=== PATIENT | male | born 1965 | race Caucasian/White ===

== ENCOUNTER 2022-03-17 19:39 | Inpatient (IN) | payer OTHER ==
[2022-03-17 20:41] LABS: #Basophils 0.1 10x3/uL (0.0-0.2); #Eosinphils 0.2 10x3/uL (0.0-0.5); #Monocytes 0.6 10x3/uL (0.0-1.1); #Neutrophils 5.8 10x3/uL (1.5-8.4); %Basophils 1.4 % (0.0-2.0); %Eosinophils 2.2 % (0.0-6.0); %Lymphocytes 18.4 % (18.0-47.0); %Monocytes 6.8 % (0.0-10.0); %Neutrophils 70.7 % (40.0-75.0); Hemoglobin 10.6 g/dL (13.5-17.5); Mean Corpuscular HGB CONC 28.1 g/dL (32.0-36.0); Mean Corpuscular Hemoglobin 19.8 pg (27.0-33.0); Mean Corpuscular Volume 70.3 fl (81.2-95.1); Mean Platelet Volume 9.8 fl (7.4-10.4); Platelet Count 303 10x3/uL (150-450); RBC Distribution Width 24.3 % (11.5-14.5); Red Blood Cell (RBC) Count 5.36 10x6/uL (4.32-5.72); White Blood Cell (WBC) Count 8.1 10x3/uL (3.5-10.5)
[2022-03-17 20:42] LABS: ALT (SGPT) 8 U/L (8-55); AST (SGOT) 16 U/L (5-34); Albumin 3.9 g/dL (3.5-5.0); Alkaline Phosphatase 84 U/L (40-110); Anion Gap 15 mmol/L (10-20); BUN (Urea Nitrogen) 16 mg/dL (8.4-25.7); Bilirubin, Total 1.5 mg/dL (0.2-1.2); Calc. Creatinine Clearance 0 mL/min (70-130); Calcium 9.2 mg/dL (7.8-10.44); Carbon Dioxide 29 mmol/L (22-29); Chloride 100 mmol/L (98-107); Globulin 2.6 g/dL (2.4-3.5); Glucose 159 mg/dL (70-105); Potassium 3.6 mmol/L (3.5-5.1); Protein, Total 6.5 g/dL (6.0-8.3); Sodium 140 mmol/L (136-145)
[2022-03-17 21:15] LABS: Platelet Morphology Comment Appears Adequate
[2022-03-17 21:17] LABS: Anisocytosis SLIGHT = 6-15 cells (100X) (0-5/hpf); Hypochromia SLIGHT = 6-15 cells (100X) (0-5/hpf); Macrocytosis SLIGHT = 6-15 cells (100X) (0-5/hpf); Microcytosis SLIGHT = 6-15 cells (100X) (0-5/hpf); Polychromasia SLIGHT = 2-3 cells (100X) (0-2/hpf)
[2022-03-17 21:18] LABS: Elliptocytes SLIGHT = 2-5 cells (100X) (0-1/hpf); Stomatocytes SLIGHT = 2-5 cells (100X) (0-1/hpf)
[2022-03-17 21:46] LABS: SARS-CoV-2 NAA Rapid Test Not Detected (NotDetected)
[2022-03-17] MEDS ORDERED: Furosemide 40 MG/4 ML VIAL ONE (21:51)
[2022-03-17] MEDS ORDERED: cefTRIAXone\\ROCEPHIN 2 GM VIAL ONE (21:52)
[2022-03-17] MEDS ORDERED: diphenhydrAMINE 50 MG/ML VIAL ONE (22:34)
[2022-03-17] MEDS ORDERED: Ondansetron PF 4 MG/2 ML Vial ONE (22:34)
[2022-03-17 23:36] LABS: Troponin I 0.015 ng/mL (< 0.028)
[2022-03-17] MEDS ORDERED: Famotidine/PF 20 mg/2ml Vial ONE (23:42)
[2022-03-18 01:00] LABS: Magnesium 1.7 mg/dL (1.6-2.6)
[2022-03-18] MEDS: Nitroglycerin 2% Ointment 1 INCH/1 GM Packet TOP SCH ×3 (01:53→16:34)
[2022-03-18] MEDS ORDERED: Diltiazem 125 MG in Sodium Chloride 0.9% 100 ML IVPB SCH (02:00)
[2022-03-18 02:43] LABS: #Basophils 0.1 10x3/uL (0.0-0.2); #Eosinphils 0.2 10x3/uL (0.0-0.5); #Monocytes 0.7 10x3/uL (0.0-1.1); %Basophils 1.2 % (0.0-2.0); %Eosinophils 2.3 % (0.0-6.0); %Lymphocytes 19.3 % (18.0-47.0); %Monocytes 7.5 % (0.0-10.0); %Neutrophils 69.4 % (40.0-75.0); Hemoglobin 10.6 g/dL (13.5-17.5); Mean Corpuscular HGB CONC 27.7 g/dL (32.0-36.0); Mean Corpuscular Hemoglobin 19.7 pg (27.0-33.0); Mean Corpuscular Volume 71.1 fl (81.2-95.1); Platelet Count 312 10x3/uL (150-450); RBC Distribution Width 24.2 % (11.5-14.5); Red Blood Cell (RBC) Count 5.37 10x6/uL (4.32-5.72); White Blood Cell (WBC) Count 8.7 10x3/uL (3.5-10.5)
[2022-03-18 02:51] LABS: Troponin I 0.012 ng/mL (< 0.028)
[2022-03-18 03:15] LABS: Platelet Morphology Comment Appears Adequate
[2022-03-18 03:16] LABS: Anisocytosis SLIGHT = 6-15 cells (100X) (0-5/hpf); Hypochromia SLIGHT = 6-15 cells (100X) (0-5/hpf); Large Platelets SLIGHT; Macrocytosis SLIGHT = 6-15 cells (100X) (0-5/hpf); Microcytosis SLIGHT = 6-15 cells (100X) (0-5/hpf); Polychromasia SLIGHT = 2-3 cells (100X) (0-2/hpf)
[2022-03-18] MEDS: Furosemide 40 MG/4 ML VIAL SLOW IVP SCH ×2 (06:50→16:34)
[2022-03-18] MEDS ORDERED: Lisinopril 2.5 MG TAB PO SCH (09:00)
[2022-03-18] MEDS: Metoprolol Tartrate 50 MG TAB PO SCH ×2 (09:09→22:13)
[2022-03-18] MEDS: Lisinopril 20 MG TAB PO SCH (09:10)
[2022-03-18] MEDS: Aspirin 81 mg Enteric Coated Tablet PO SCH (09:10)
[2022-03-18] MEDS: metFORMIN 500 MG TAB PO SCH ×2 (09:10→16:34)
[2022-03-18] MEDS: Apixaban 5 MG TAB PO SCH ×2 (09:10→22:13)
[2022-03-18] MEDS: HumuLIN 70/30 (300 UNITS/3 ML VIAL) SC SCH ×3 (09:10→22:13)
[2022-03-18] MEDS ORDERED: Bumetanide 1 MG TAB PO SCH (16:52)
[2022-03-18] MEDS ORDERED: Dextrose 50% Abboject 50 ML SYRINGE SLOW IVP PRN (16:58)
[2022-03-18] MEDS ORDERED: HumaLOG 300 UNITS/3 ML VIAL SC PRN (16:58)
[2022-03-18] MEDS ORDERED: Dextrose 5% in Water 1,000 ML IV PRN (16:58)
[2022-03-18] MEDS ORDERED: Bumetanide 1 MG/4 ML VIAL IVP SCH ×2 (18:00→21:00)
[2022-03-18] MEDS: HumaLOG 300 UNITS/3 ML VIAL SC PRN (18:22)
[2022-03-18] MEDS ORDERED: Ondansetron PF 4 MG/2 ML Vial IVP PRN (21:04)
[2022-03-18] MEDS ORDERED: cefTRIAXone\\ROCEPHIN 2 GM in Sodium Chloride 0.9% 100 ML IVPB SCH (22:00)
[2022-03-18] MEDS: Simvastatin 10 MG TAB PO SCH (22:13)
[2022-03-19] MEDS: Nitroglycerin 2% Ointment 1 INCH/1 GM Packet TOP SCH ×3 (01:29→18:27)
[2022-03-19] MEDS: HumaLOG 300 UNITS/3 ML VIAL SC PRN ×2 (05:51→12:57)
[2022-03-19] MEDS: Bumetanide 1 MG/4 ML VIAL IVP SCH ×4 (05:53→21:17)
[2022-03-19 07:40] LABS: #Basophils 0.1 10x3/uL (0.0-0.2); #Eosinphils 0.2 10x3/uL (0.0-0.5); #Monocytes 0.7 10x3/uL (0.0-1.1); #Neutrophils 6.2 10x3/uL (1.5-8.4); %Basophils 1.3 % (0.0-2.0); %Eosinophils 2.3 % (0.0-6.0); %Lymphocytes 16.7 % (18.0-47.0); %Monocytes 7.5 % (0.0-10.0); %Neutrophils 71.9 % (40.0-75.0); Hemoglobin 11.3 g/dL (13.5-17.5); Mean Corpuscular Volume 71.6 fl (81.2-95.1); Mean Platelet Volume 9.6 fl (7.4-10.4); Platelet Count 289 10x3/uL (150-450); RBC Distribution Width 23.9 % (11.5-14.5); Red Blood Cell (RBC) Count 5.64 10x6/uL (4.32-5.72); White Blood Cell (WBC) Count 8.6 10x3/uL (3.5-10.5)
[2022-03-19 08:16] LABS: Anion Gap 13 mmol/L (10-20); BUN (Urea Nitrogen) 20 mg/dL (8.4-25.7); Calc. Creatinine Clearance 224 mL/min (70-130); Calcium 9.3 mg/dL (7.8-10.44); Carbon Dioxide 30 mmol/L (22-29); Chloride 99 mmol/L (98-107); Glucose 226 mg/dL (70-105); Magnesium 1.5 mg/dL (1.6-2.6); Potassium 3.9 mmol/L (3.5-5.1); Sodium 138 mmol/L (136-145)
[2022-03-19] MEDS: Metoprolol Tartrate 50 MG TAB PO SCH ×2 (09:54→21:16)
[2022-03-19] MEDS: HumuLIN 70/30 (300 UNITS/3 ML VIAL) SC SCH ×2 (09:55→23:03)
[2022-03-19] MEDS: Aspirin 81 mg Enteric Coated Tablet PO SCH (09:55)
[2022-03-19] MEDS: metFORMIN 500 MG TAB PO SCH ×2 (09:55→18:26)
[2022-03-19] MEDS: Apixaban 5 MG TAB PO SCH ×2 (09:55→21:16)
[2022-03-19] MEDS: Lisinopril 20 MG TAB PO SCH (09:55)
[2022-03-19] MEDS ORDERED: Magnesium 2 GM/50 ML(in water) 2 GM in Premix Bag 1 BAG IVPB SCH (15:00)
[2022-03-19] MEDS: Simvastatin 10 MG TAB PO SCH (21:16)
[2022-03-20] MEDS: Nitroglycerin 2% Ointment 1 INCH/1 GM Packet TOP SCH ×3 (00:22→17:18)
[2022-03-20 04:39] LABS: Anion Gap 17 mmol/L (10-20); BUN (Urea Nitrogen) 19 mg/dL (8.4-25.7); Calc. Creatinine Clearance 262 mL/min (70-130); Calcium 9.2 mg/dL (7.8-10.44); Carbon Dioxide 28 mmol/L (22-29); Chloride 100 mmol/L (98-107); Glucose 110 mg/dL (70-105); Sodium 141 mmol/L (136-145)
[2022-03-20] MEDS: metFORMIN 500 MG TAB PO SCH ×2 (08:44→17:18)
[2022-03-20] MEDS: Lisinopril 20 MG TAB PO SCH (08:44)
[2022-03-20] MEDS: Metoprolol Tartrate 50 MG TAB PO SCH ×2 (08:45→21:00)
[2022-03-20] MEDS: Aspirin 81 mg Enteric Coated Tablet PO SCH (08:45)
[2022-03-20] MEDS: Apixaban 5 MG TAB PO SCH ×2 (08:45→21:02)
[2022-03-20] MEDS: HumuLIN 70/30 (300 UNITS/3 ML VIAL) SC SCH ×2 (08:46→21:01)
[2022-03-20] MEDS: Bumetanide 1 MG/4 ML VIAL IVP SCH ×3 (10:16→21:01)
[2022-03-20] MEDS: Simvastatin 10 MG TAB PO SCH (21:01)
[2022-03-21] MEDS: Nitroglycerin 2% Ointment 1 INCH/1 GM Packet TOP SCH ×3 (01:35→15:54)
[2022-03-21 03:40] LABS: #Basophils 0.1 10x3/uL (0.0-0.2); #Eosinphils 0.2 10x3/uL (0.0-0.5); #Monocytes 0.6 10x3/uL (0.0-1.1); #Neutrophils 5.3 10x3/uL (1.5-8.4); %Basophils 1.4 % (0.0-2.0); %Eosinophils 2.9 % (0.0-6.0); %Lymphocytes 18.2 % (18.0-47.0); %Neutrophils 69.2 % (40.0-75.0); Hemoglobin 11.4 g/dL (13.5-17.5); Mean Corpuscular HGB CONC 27.7 g/dL (32.0-36.0); Mean Corpuscular Hemoglobin 19.9 pg (27.0-33.0); Mean Corpuscular Volume 71.9 fl (81.2-95.1); Mean Platelet Volume 9.2 fl (7.4-10.4); Platelet Count 254 10x3/uL (150-450); RBC Distribution Width 23.9 % (11.5-14.5); Red Blood Cell (RBC) Count 5.73 10x6/uL (4.32-5.72); White Blood Cell (WBC) Count 7.6 10x3/uL (3.5-10.5)
[2022-03-21 03:55] LABS: Anion Gap 17 mmol/L (10-20); BUN (Urea Nitrogen) 19 mg/dL (8.4-25.7); Calc. Creatinine Clearance 241 mL/min (70-130); Calcium 8.8 mg/dL (7.8-10.44); Carbon Dioxide 30 mmol/L (22-29); Chloride 98 mmol/L (98-107); Glucose 137 mg/dL (70-105); Magnesium 1.8 mg/dL (1.6-2.6); Potassium 3.8 mmol/L (3.5-5.1); Sodium 141 mmol/L (136-145)
[2022-03-21 04:33] LABS: Bilirubin Neg (Negative); Blood, Urine 25 (Negative); Clarity Clear (Clear); Glucose, Urine (Dipstick) Normal (Negative); Ketone, Urine Negative (Negative); Leukocyte Negative (Negative); Nitrite Negative (Negative); Protein, Urine (Dipstick) 15 mg/dl (Neg-Trace)
[2022-03-21 04:48] LABS: Bacteria/HPF None Seen HPF (None Seen); RBC/HPF 0-3 HPF (0-3); Squamous Epithelial None Seen HPF (0-3); Urine Culture Reflex No No; WBC/HPF None Seen HPF (0-3)
[2022-03-21] MEDS: Bumetanide 1 MG/4 ML VIAL IVP SCH ×3 (08:26→21:06)
[2022-03-21] MEDS: HumuLIN 70/30 (300 UNITS/3 ML VIAL) SC SCH ×2 (08:27→21:00)
[2022-03-21] MEDS: Aspirin 81 mg Enteric Coated Tablet PO SCH (08:45)
[2022-03-21] MEDS: Metoprolol Tartrate 50 MG TAB PO SCH ×2 (08:46→21:07)
[2022-03-21] MEDS: Apixaban 5 MG TAB PO SCH ×2 (08:46→21:07)
[2022-03-21] MEDS: Lisinopril 20 MG TAB PO SCH (08:46)
[2022-03-21] MEDS: metFORMIN 500 MG TAB PO SCH ×2 (08:46→16:28)
[2022-03-21 14:19] VITALS: BMI 65.2
[2022-03-21] MEDS: Simvastatin 10 MG TAB PO SCH (21:07)
[2022-03-22] MEDS: Nitroglycerin 2% Ointment 1 INCH/1 GM Packet TOP SCH ×3 (01:00→16:20)
[2022-03-22 04:49] LABS: Anion Gap 16 mmol/L (10-20); BUN (Urea Nitrogen) 16 mg/dL (8.4-25.7); Calc. Creatinine Clearance 296 mL/min (70-130); Calcium 8.7 mg/dL (7.8-10.44); Carbon Dioxide 31 mmol/L (22-29); Chloride 97 mmol/L (98-107); Glucose 199 mg/dL (70-105); Magnesium 1.6 mg/dL (1.6-2.6); Potassium 3.7 mmol/L (3.5-5.1); Sodium 140 mmol/L (136-145)
[2022-03-22] MEDS: HumaLOG 300 UNITS/3 ML VIAL SC PRN (05:01)
[2022-03-22] MEDS: Lisinopril 20 MG TAB PO SCH (08:25)
[2022-03-22] MEDS: Metoprolol Tartrate 50 MG TAB PO SCH ×2 (08:25→20:38)
[2022-03-22] MEDS: metFORMIN 500 MG TAB PO SCH ×2 (08:25→16:19)
[2022-03-22] MEDS: Apixaban 5 MG TAB PO SCH ×2 (08:25→20:37)
[2022-03-22] MEDS: Bumetanide 1 MG/4 ML VIAL IVP SCH ×3 (08:25→20:55)
[2022-03-22] MEDS: HumuLIN 70/30 (300 UNITS/3 ML VIAL) SC SCH ×2 (08:25→20:50)
[2022-03-22] MEDS: Aspirin 81 mg Enteric Coated Tablet PO SCH (08:25)
[2022-03-22] MEDS: Simvastatin 10 MG TAB PO SCH (20:48)
[2022-03-23] MEDS: Nitroglycerin 2% Ointment 1 INCH/1 GM Packet TOP SCH ×2 (01:22→09:50)
[2022-03-23 04:58] LABS: Anion Gap 14 mmol/L (10-20); BUN (Urea Nitrogen) 16 mg/dL (8.4-25.7); Calc. Creatinine Clearance 303 mL/min (70-130); Calcium 8.8 mg/dL (7.8-10.44); Carbon Dioxide 32 mmol/L (22-29); Chloride 98 mmol/L (98-107); Glucose 120 mg/dL (70-105); Magnesium 1.6 mg/dL (1.6-2.6); Potassium 3.7 mmol/L (3.5-5.1); Sodium 140 mmol/L (136-145)
[2022-03-23] MEDS: Bumetanide 1 MG/4 ML VIAL IVP SCH ×3 (09:07→20:26)
[2022-03-23] MEDS: metFORMIN 500 MG TAB PO SCH ×2 (09:07→15:57)
[2022-03-23] MEDS: Aspirin 81 mg Enteric Coated Tablet PO SCH (09:08)
[2022-03-23] MEDS: Apixaban 5 MG TAB PO SCH ×2 (09:08→20:26)
[2022-03-23] MEDS: Lisinopril 20 MG TAB PO SCH (09:09)
[2022-03-23] MEDS: Metoprolol Tartrate 50 MG TAB PO SCH ×2 (09:09→20:26)
[2022-03-23] MEDS: HumuLIN 70/30 (300 UNITS/3 ML VIAL) SC SCH ×2 (09:09→22:30)
[2022-03-23] MEDS: HumaLOG 300 UNITS/3 ML VIAL SC PRN (12:35)
[2022-03-23] MEDS: Fluticasone Propionate Nasal Spray 16 gm Bottle NASAL SCH (20:25)
[2022-03-23] MEDS: Simvastatin 10 MG TAB PO SCH (20:26)
[2022-03-24] MEDS ORDERED: Ondansetron PF 4 MG/2 ML Vial IVP SCH (04:45)
[2022-03-24] MEDS: Apixaban 5 MG TAB PO SCH ×2 (08:58→19:54)
[2022-03-24] MEDS: Bumetanide 1 MG/4 ML VIAL IVP SCH ×3 (08:58→21:00)
[2022-03-24] MEDS: metFORMIN 500 MG TAB PO SCH ×2 (08:58→15:57)
[2022-03-24] MEDS: Fluticasone Propionate Nasal Spray 16 gm Bottle NASAL SCH ×2 (08:59→19:55)
[2022-03-24] MEDS: Metoprolol Tartrate 50 MG TAB PO SCH ×2 (08:59→19:54)
[2022-03-24] MEDS: Lisinopril 20 MG TAB PO SCH (08:59)
[2022-03-24] MEDS: HumuLIN 70/30 (300 UNITS/3 ML VIAL) SC SCH ×2 (08:59→21:37)
[2022-03-24] MEDS: Aspirin 81 mg Enteric Coated Tablet PO SCH (08:59)
[2022-03-24] MEDS: Simvastatin 10 MG TAB PO SCH (19:54)
[2022-03-24 22:29] VITALS: BP 144/68; TEMP 97.9
== END 2022-03-24 22:30 | disposition home or self-care (01) | DRG 291 ==
LOC: CSHERS 19:39 → CSHTELE 22:05 → UNDOADMIN 03-18 00:44 → CSHTELE 03-18 00:44
PROVIDERS: ADMIT Family Medicine; ATTEND Internal Medicine
PROC: 5A09457 Assistance with Respiratory Ventilation, 24-96 Consecutive Hours, Continuous Positive Airway Pressure (ICD-10-PCS; principal; 2022-03-18)
DX: I11.0 Hypertensive heart disease with heart failure (principal); I50.33 Acute on chronic diastolic (congestive) heart failure; J96.90 Respiratory failure, unspecified, unspecified whether with hypoxia or hypercapnia; L03.311 Cellulitis of abdominal wall; I48.20 Chronic atrial fibrillation, unspecified; Z68.44 Body mass index [BMI] 60.0-69.9, adult; E66.2 Morbid (severe) obesity with alveolar hypoventilation; Z20.822 Contact with and (suspected) exposure to COVID-19; E78.5 Hyperlipidemia, unspecified; D64.9 Anemia, unspecified; E11.51 Type 2 diabetes mellitus with diabetic peripheral angiopathy without gangrene; F17.290 Nicotine dependence, other tobacco product, uncomplicated; E83.42 Hypomagnesemia; Z79.4 Long term (current) use of insulin; Z79.84 Long term (current) use of oral hypoglycemic drugs; Z79.899 Other long term (current) drug therapy; Z79.82 Long term (current) use of aspirin; Z89.511 Acquired absence of right leg below knee; Z80.0 Family history of malignant neoplasm of digestive organs; Z83.3 Family history of diabetes mellitus; Z79.01 Long term (current) use of anticoagulants; Z88.1 Allergy status to other antibiotic agents
CPT/HCPCS: 36415; 36416; 71045; 80048; 80053; 81001; 83605; 83735; 83880; 84484; 85025; 86140; 87040; 87086; 87149; 93005; 93010; 94660; 94760; 96365; 96375; J0696; J1200; J1815; J1940; J2405; J3475; J3490; S0028; U0002

== ENCOUNTER 2022-03-27 09:17 | Outpatient (CLI) | payer MEDICAID, OTHER | END 2022-03-27 09:18 | disposition home or self-care (01) | LOC: CSHWCC 09:17 | PROVIDERS: ATTEND Nurse Practitioner Family | DX: E11.621 Type 2 diabetes mellitus with foot ulcer (principal); L97.522 Non-pressure chronic ulcer of other part of left foot with fat layer exposed ==

== ENCOUNTER → 2022-03-27 | Outpatient (CLI) | payer OTHER | LOC: CSHWCC 21:31 | PROVIDERS: ATTEND Nurse Practitioner Family | DX: E11.621 Type 2 diabetes mellitus with foot ulcer (principal); L97.522 Non-pressure chronic ulcer of other part of left foot with fat layer exposed | CPT/HCPCS: 99213; G0463 ==

== ENCOUNTER 2022-04-25 21:52 | Emergency (ER) | payer OTHER ==
[2022-04-25 23:12] LABS: Bilirubin Neg (Negative); Blood, Urine 25 (Negative); Clarity Clear (Clear); Glucose, Urine (Dipstick) >=1000 mg/dL (Negative); Ketone, Urine Negative (Negative); Leukocyte Negative (Negative); Nitrite Negative (Negative); Protein, Urine (Dipstick) 15 mg/dl (Neg-Trace); Specific Gravity, Urine 1.005 (1.002-1.036); Urobilinogen Normal mg/dL (Less than 2)
[2022-04-25 23:27] LABS: Bacteria/HPF None Seen HPF (None Seen); RBC/HPF 0-3 HPF (0-3); Squamous Epithelial 0-3 HPF (0-3); WBC/HPF 0-3 HPF (0-3)
[2022-04-25 23:35] LABS: #Basophils 0.1 10x3/uL (0.0-0.2); #Eosinphils 0.2 10x3/uL (0.0-0.5); #Monocytes 0.5 10x3/uL (0.0-1.1); #Neutrophils 6.9 10x3/uL (1.5-8.4); %Basophils 0.8 % (0.0-2.0); %Eosinophils 2.1 % (0.0-6.0); %Lymphocytes 15.4 % (18.0-47.0); %Monocytes 5.2 % (0.0-10.0); %Neutrophils 75.8 % (40.0-75.0); Hemoglobin 10.8 g/dL (13.5-17.5); Mean Corpuscular Hemoglobin 22.2 pg (27.0-33.0); Mean Corpuscular Volume 74.1 fl (81.2-95.1); Mean Platelet Volume 10.5 fl (7.4-10.4); Platelet Count 197 10x3/uL (150-450); RBC Distribution Width 22.3 % (11.5-14.5); Red Blood Cell (RBC) Count 4.86 10x6/uL (4.32-5.72); White Blood Cell (WBC) Count 9.1 10x3/uL (3.5-10.5)
[2022-04-25 23:37] LABS: ALT (SGPT) 10 U/L (8-55); AST (SGOT) 14 U/L (5-34); Albumin 3.3 g/dL (3.5-5.0); Alkaline Phosphatase 82 U/L (40-110); Anion Gap 14 mmol/L (10-20); BUN (Urea Nitrogen) 28 mg/dL (8.4-25.7); Bilirubin, Total 1.1 mg/dL (0.2-1.2); CK (CPK) 91 U/L (30-200); Calc. Creatinine Clearance 0 mL/min (70-130); Calcium 7.4 mg/dL (7.8-10.44); Carbon Dioxide 22 mmol/L (22-29); Chloride 103 mmol/L (98-107); Globulin 2.3 g/dL (2.4-3.5); Glucose 530 mg/dL (70-105); Potassium 3.9 mmol/L (3.5-5.1); Protein, Total 5.6 g/dL (6.0-8.3); Sodium 135 mmol/L (136-145)
[2022-04-26 00:10] LABS: Anisocytosis SLIGHT = 6-15 cells (100X) (0-5/hpf); Elliptocytes SLIGHT = 2-5 cells (100X) (0-1/hpf); Platelet Morphology Comment Appears Adequate
[2022-04-26] MEDS ORDERED: Metoprolol Tartrate 50 MG TAB ONE (00:16)
[2022-04-26] MEDS ORDERED: Potassium Chloride 20 MEQ TAB ONE (00:16)
[2022-04-26] MEDS ORDERED: Metoprolol Tartrate 5 MG/5 ML VIAL ONE ×2 (00:17→01:08)
[2022-04-26] MEDS ORDERED: Insulin Regular 300 UNITS/3 ML VIAL ONE (00:21)
== END 2022-04-26 02:03 | disposition home or self-care (01) ==
LOC: CSHERS 21:52
DX: E11.65 Type 2 diabetes mellitus with hyperglycemia (principal); I48.91 Unspecified atrial fibrillation; I11.0 Hypertensive heart disease with heart failure; I50.9 Heart failure, unspecified; Z79.899 Other long term (current) drug therapy; Z79.4 Long term (current) use of insulin; Z79.82 Long term (current) use of aspirin; Z79.01 Long term (current) use of anticoagulants; Z79.84 Long term (current) use of oral hypoglycemic drugs
CPT/HCPCS: 36416; 71045; 80053; 81003; 81015; 82010; 82550; 83880; 84484; 85025; 93005; 96374; 96375; 96376; J1815

== ENCOUNTER 2022-04-30 09:15 | Outpatient (CLI) | payer OTHER | END 2022-04-30 09:16 | disposition home or self-care (01) | LOC: CSHWCC 09:15 | PROVIDERS: ATTEND Nurse Practitioner Family | DX: S81.802D Unspecified open wound, left lower leg, subsequent encounter (principal); R60.1 Generalized edema; S81.801D Unspecified open wound, right lower leg, subsequent encounter | CPT/HCPCS: 36416; 99213; G0463 ==

== ENCOUNTER 2022-06-16 09:17 | Outpatient (CLI) | payer OTHER | END 2022-06-16 09:18 | disposition home or self-care (01) | LOC: CSHLAB 09:17 | PROVIDERS: ATTEND Internal Medicine Gastroenterology | DX: Z20.822 Contact with and (suspected) exposure to COVID-19 (principal); D64.9 Anemia, unspecified | CPT/HCPCS: 87811 ==

== ENCOUNTER 2022-07-17 10:30 | Inpatient (IN) | payer OTHER ==
[2022-07-17] MEDS ORDERED: Lidocaine 1% PF 5 ML VIAL ONE (11:10)
[2022-07-17] MEDS ORDERED: PROPOFOL 20 ML ONE (11:10)
[2022-07-17] MEDS ORDERED: Esmolol 100 MG/10 ML VIAL ONE (12:03)
[2022-07-17] MEDS ORDERED: Metoprolol Tartrate 5 MG/5 ML VIAL ONE (12:22)
[2022-07-17] MEDS ORDERED: PROPOFOL 40 ML ONE (12:29)
[2022-07-17] MEDS ORDERED: Guaifenesin DM 100-10/5 ML UDCUP PO PRN (14:29)
[2022-07-17] MEDS ORDERED: Ondansetron PF 4 MG/2 ML Vial IVP PRN (14:29)
[2022-07-17] MEDS ORDERED: Acetaminophen 325 MG TAB PO PRN (14:29)
[2022-07-17] MEDS ORDERED: Senokot S 8.6-50 MG TAB PO PRN (14:29)
[2022-07-17] MEDS ORDERED: Sodium Chloride 0.9% 1,000 ML IV SCH (14:45)
[2022-07-17] MEDS ORDERED: Diltiazem 125 MG in Sodium Chloride 0.9% 100 ML IVPB SCH (14:45)
[2022-07-17 14:56] VITALS: BMI 53.5
[2022-07-17 16:38] LABS: Bilirubin Neg (Negative); Blood, Urine 10 (Negative); Clarity Clear (Clear); Glucose, Urine (Dipstick) Normal (Negative); Ketone, Urine Negative (Negative); Leukocyte 25 (Negative); Nitrite Negative (Negative); Protein, Urine (Dipstick) 100 mg/dl (Neg-Trace)
[2022-07-17 16:39] LABS: ALT (SGPT) 27 U/L (8-55); AST (SGOT) 26 U/L (5-34); Albumin 3.6 g/dL (3.5-5.0); Alkaline Phosphatase 92 U/L (40-110); Anion Gap 15 mmol/L (10-20); BUN (Urea Nitrogen) 20 mg/dL (8.4-25.7); Bilirubin, Total 1.1 mg/dL (0.2-1.2); Calc. Creatinine Clearance 225 mL/min (70-130); Calcium 8.8 mg/dL (7.8-10.44); Carbon Dioxide 21 mmol/L (22-29); Chloride 104 mmol/L (98-107); Estimated GFR 100; Globulin 2.9 g/dL (2.4-3.5); Glucose 237 mg/dL (70-105); Potassium 4.8 mmol/L (3.5-5.1); Protein, Total 6.5 g/dL (6.0-8.3); Sodium 135 mmol/L (136-145)
[2022-07-17 16:42] LABS: #Basophils 0.1 10x3/uL (0.0-0.2); #Eosinphils 0.1 10x3/uL (0.0-0.5); #Monocytes 0.8 10x3/uL (0.0-1.1); #Neutrophils 12.2 10x3/uL (1.5-8.4); %Basophils 0.5 % (0.0-2.0); %Eosinophils 0.5 % (0.0-6.0); %Lymphocytes 12.2 % (18.0-47.0); %Monocytes 5.2 % (0.0-10.0); %Neutrophils 80.7 % (40.0-75.0); Hemoglobin 14.3 g/dL (13.5-17.5); Mean Corpuscular HGB CONC 30.4 g/dL (32.0-36.0); Mean Corpuscular Hemoglobin 23.5 pg (27.0-33.0); Mean Corpuscular Volume 77.3 fl (81.2-95.1); Mean Platelet Volume 10.5 fl (7.4-10.4); Platelet Count 250 10x3/uL (150-450); RBC Distribution Width 18.4 % (11.5-14.5); Red Blood Cell (RBC) Count 6.09 10x6/uL (4.32-5.72); White Blood Cell (WBC) Count 15.1 10x3/uL (3.5-10.5)
[2022-07-17 16:45] LABS: Urine Culture Reflex No No
[2022-07-17 16:49] LABS: Bacteria/HPF None Seen HPF (None Seen); RBC/HPF 0-3 HPF (0-3); Squamous Epithelial 0-3 HPF (0-3); WBC/HPF 0-3 HPF (0-3)
[2022-07-17 16:57] LABS: Legionella Urinary Ag Negative (Negative); Strep pneumo Urine Ag NEGATIVE (NEGATIVE)
[2022-07-17] MEDS: Apixaban 5 MG TAB PO SCH ×2 (18:01→19:15)
[2022-07-17] MEDS: Metoprolol Tartrate 50 MG TAB PO SCH (20:16)
[2022-07-17] MEDS: Famotidine 20 MG TAB PO SCH (20:16)
[2022-07-17] MEDS: Simvastatin 10 MG TAB PO SCH (20:16)
[2022-07-17] MEDS: HumuLIN 70/30 (300 UNITS/3 ML VIAL) SC SCH (20:24)
[2022-07-17] MEDS ORDERED: Lantus 1000 UNITS/10 ML VIAL SC SCH (21:00)
[2022-07-18 05:03] LABS: Anion Gap 10 mmol/L (10-20); BUN (Urea Nitrogen) 17 mg/dL (8.4-25.7); Calc. Creatinine Clearance 251 mL/min (70-130); Calcium 8.8 mg/dL (7.8-10.44); Carbon Dioxide 27 mmol/L (22-29); Chloride 105 mmol/L (98-107); Estimated GFR 103; Glucose 150 mg/dL (70-105); Potassium 4.5 mmol/L (3.5-5.1); Sodium 137 mmol/L (136-145)
[2022-07-18 05:08] LABS: #Basophils 0.1 10x3/uL (0.0-0.2); #Eosinphils 0.2 10x3/uL (0.0-0.5); #Monocytes 0.7 10x3/uL (0.0-1.1); #Neutrophils 8.1 10x3/uL (1.5-8.4); %Basophils 0.6 % (0.0-2.0); %Eosinophils 1.4 % (0.0-6.0); %Lymphocytes 17.8 % (18.0-47.0); %Monocytes 6.7 % (0.0-10.0); %Neutrophils 72.9 % (40.0-75.0); Hemoglobin 13.3 g/dL (13.5-17.5); Mean Corpuscular HGB CONC 30.9 g/dL (32.0-36.0); Mean Corpuscular Hemoglobin 23.5 pg (27.0-33.0); Mean Corpuscular Volume 76.3 fl (81.2-95.1); Platelet Count 229 10x3/uL (150-450); RBC Distribution Width 18.6 % (11.5-14.5); Red Blood Cell (RBC) Count 5.65 10x6/uL (4.32-5.72); White Blood Cell (WBC) Count 11.1 10x3/uL (3.5-10.5)
[2022-07-18] MEDS: Ferrous Sulfate 325 MG TAB PO SCH (08:50)
[2022-07-18] MEDS: Famotidine 20 MG TAB PO SCH ×2 (08:50→20:22)
[2022-07-18] MEDS: HumuLIN 70/30 (300 UNITS/3 ML VIAL) SC SCH ×2 (08:51→20:24)
[2022-07-18] MEDS: Apixaban 5 MG TAB PO SCH ×2 (08:51→20:22)
[2022-07-18] MEDS: Metoprolol Tartrate 50 MG TAB PO SCH ×2 (08:51→20:23)
[2022-07-18] MEDS: metFORMIN 500 MG TAB PO SCH ×2 (08:51→16:29)
[2022-07-18] MEDS ORDERED: Enoxaparin Sodium 40 MG/0.4 ML SYRINGE SC SCH (09:00)
[2022-07-18] MEDS: Simvastatin 10 MG TAB PO SCH (20:22)
[2022-07-19 07:00] LABS: SARS-CoV-2 NAA Rapid Test Not Detected (NotDetected)
[2022-07-19] MEDS: Metoprolol Tartrate 50 MG TAB PO SCH ×2 (09:20→20:59)
[2022-07-19] MEDS: Ferrous Sulfate 325 MG TAB PO SCH (09:21)
[2022-07-19] MEDS: Famotidine 20 MG TAB PO SCH ×2 (09:21→20:59)
[2022-07-19] MEDS: metFORMIN 500 MG TAB PO SCH ×2 (09:21→17:41)
[2022-07-19] MEDS: HumuLIN 70/30 (300 UNITS/3 ML VIAL) SC SCH ×2 (09:22→20:58)
[2022-07-19] MEDS: Apixaban 5 MG TAB PO SCH ×2 (09:22→21:00)
[2022-07-19] MEDS ORDERED: Propafenone HCl 150 MG TAB PO SCH ×2 (10:45→14:00)
[2022-07-19] MEDS ORDERED: Dextrose 50% Abboject 50 ML SYRINGE SLOW IVP PRN (13:05)
[2022-07-19] MEDS ORDERED: Dextrose 5% in Water 1,000 ML IV PRN (13:05)
[2022-07-19] MEDS: HumaLOG 300 UNITS/3 ML VIAL SC PRN (13:13)
[2022-07-19] MEDS: Simvastatin 10 MG TAB PO SCH (21:00)
[2022-07-19] MEDS: Propafenone HCl 150 MG TAB PO SCH (21:00)
[2022-07-20] MEDS: metFORMIN 500 MG TAB PO SCH ×2 (09:49→18:13)
[2022-07-20] MEDS: Propafenone HCl 150 MG TAB PO SCH ×3 (09:49→21:13)
[2022-07-20] MEDS: Famotidine 20 MG TAB PO SCH (09:50)
[2022-07-20] MEDS: Ferrous Sulfate 325 MG TAB PO SCH (09:50)
[2022-07-20] MEDS: Apixaban 5 MG TAB PO SCH ×2 (09:50→21:13)
[2022-07-20] MEDS: HumuLIN 70/30 (300 UNITS/3 ML VIAL) SC SCH ×2 (09:51→21:26)
[2022-07-20 09:52] LABS: Anion Gap 14 mmol/L (10-20); BUN (Urea Nitrogen) 15 mg/dL (8.4-25.7); Calc. Creatinine Clearance 231 mL/min (70-130); Calcium 9.4 mg/dL (7.8-10.44); Carbon Dioxide 25 mmol/L (22-29); Chloride 105 mmol/L (98-107); Estimated GFR 100; Glucose 152 mg/dL (70-105); Magnesium 1.7 mg/dL (1.6-2.6); Potassium 4.9 mmol/L (3.5-5.1); Sodium 139 mmol/L (136-145)
[2022-07-20] MEDS ORDERED: clonazePAM 0.5 MG TAB PO PRN (10:45)
[2022-07-20] MEDS ORDERED: Magnesium 2 GM/50 ML(in water) 2 GM in Premix Bag 1 BAG IVPB SCH (11:45)
[2022-07-20] MEDS ORDERED: clonazePAM 0.5 MG TAB PO SCH (12:30)
[2022-07-20] MEDS ORDERED: hydrALAZINE 20 MG/ML VIAL SLOW IVP PRN (12:47)
[2022-07-20] MEDS ORDERED: Carvedilol 25 MG TAB PO SCH (13:00)
[2022-07-20] MEDS: HumaLOG 300 UNITS/3 ML VIAL SC PRN ×2 (13:27→18:14)
[2022-07-20] MEDS: Bumetanide 1 MG TAB PO PRN (15:13)
[2022-07-20] MEDS: Carvedilol 25 MG TAB PO SCH (18:14)
[2022-07-20] MEDS ORDERED: Fluticasone Propionate Nasal Spray 16 gm Bottle NASAL PRN (19:09)
[2022-07-20] MEDS: Simvastatin 10 MG TAB PO SCH (21:13)
[2022-07-21] MEDS: Bumetanide 1 MG TAB PO PRN (05:22)
[2022-07-21] MEDS: HumaLOG 300 UNITS/3 ML VIAL SC PRN ×2 (05:22→12:38)
[2022-07-21 06:03] LABS: Anion Gap 14 mmol/L (10-20); BUN (Urea Nitrogen) 20 mg/dL (8.4-25.7); Calc. Creatinine Clearance 233 mL/min (70-130); Calcium 9.1 mg/dL (7.8-10.44); Carbon Dioxide 24 mmol/L (22-29); Chloride 103 mmol/L (98-107); Estimated GFR 101; Glucose 235 mg/dL (70-105); Magnesium 1.5 mg/dL (1.6-2.6); Potassium 4.1 mmol/L (3.5-5.1); Sodium 137 mmol/L (136-145)
[2022-07-21] MEDS: HumuLIN 70/30 (300 UNITS/3 ML VIAL) SC SCH (08:04)
[2022-07-21] MEDS: Propafenone HCl 150 MG TAB PO SCH (08:05)
[2022-07-21] MEDS: metFORMIN 500 MG TAB PO SCH (08:06)
[2022-07-21] MEDS: Ferrous Sulfate 325 MG TAB PO SCH (08:07)
[2022-07-21] MEDS: Apixaban 5 MG TAB PO SCH (08:07)
[2022-07-21] MEDS: Carvedilol 25 MG TAB PO SCH (08:07)
[2022-07-21] MEDS ORDERED: Potassium Chloride 20 MEQ TAB PO SCH (09:00)
[2022-07-21] MEDS ORDERED: Lisinopril 20 MG TAB PO SCH (09:00)
[2022-07-21 11:44] VITALS: BP 112/61; TEMP 98.3
== END 2022-07-21 14:40 | disposition home or self-care (01) | DRG 309 ==
LOC: CSHSDC 10:30 → SUATTDRO 10:30 → CSHIMCU 15:40 → CSHTELE 07-18 19:00
PROVIDERS: ADMIT Hospitalist; ATTEND Family Medicine
PROC: 0DJD8ZZ Inspection of Lower Intestinal Tract, Via Natural or Artificial Opening Endoscopic (ICD-10-PCS; 2022-07-17)
PROC: 5A09357 Assistance with Respiratory Ventilation, Less than 24 Consecutive Hours, Continuous Positive Airway Pressure (ICD-10-PCS; principal; 2022-07-18)
DX: I48.0 Paroxysmal atrial fibrillation (principal); Z68.43 Body mass index [BMI] 50.0-59.9, adult; D64.9 Anemia, unspecified; E11.51 Type 2 diabetes mellitus with diabetic peripheral angiopathy without gangrene; E66.01 Morbid (severe) obesity due to excess calories; E78.5 Hyperlipidemia, unspecified; M19.90 Unspecified osteoarthritis, unspecified site; I11.0 Hypertensive heart disease with heart failure; I50.9 Heart failure, unspecified; G47.33 Obstructive sleep apnea (adult) (pediatric); R41.82 Altered mental status, unspecified; T41.45XA Adverse effect of unspecified anesthetic, initial encounter; Z20.822 Contact with and (suspected) exposure to COVID-19; Z89.511 Acquired absence of right leg below knee; Z88.5 Allergy status to narcotic agent; Z88.8 Allergy status to other drugs, medicaments and biological substances; Z79.84 Long term (current) use of oral hypoglycemic drugs; Z79.82 Long term (current) use of aspirin; Z79.899 Other long term (current) drug therapy; Z79.01 Long term (current) use of anticoagulants; Z79.4 Long term (current) use of insulin; K64.4 Residual hemorrhoidal skin tags
CPT/HCPCS: 36415; 36416; 71045; 80048; 80053; 81001; 83735; 85025; 86140; 87040; 87086; 87449; 87899; 90471; 90732; 93005; 93010; 94660; 94760; G0009; J1815; J2704; J3475; J3490; J7050; U0002

== ENCOUNTER 2022-09-23 08:12 | Outpatient (CLI) | payer OTHER | END 2022-09-23 08:13 | disposition home or self-care (01) | LOC: CSHWCC 08:12 | PROVIDERS: ATTEND Nurse Practitioner Family | DX: E11.621 Type 2 diabetes mellitus with foot ulcer (principal); L97.522 Non-pressure chronic ulcer of other part of left foot with fat layer exposed; R60.0 Localized edema | CPT/HCPCS: 99213; G0463 ==

== ENCOUNTER 2022-10-14 08:03 | Outpatient (CLI) | payer OTHER | END 2022-10-14 08:04 | disposition home or self-care (01) | LOC: CSHWCC 08:03 | PROVIDERS: ATTEND Nurse Practitioner Family | DX: L89.93 Pressure ulcer of unspecified site, stage 3 (principal); R60.0 Localized edema | CPT/HCPCS: 99213; G0463 ==

== ENCOUNTER 2022-11-21 09:50 | Outpatient (CLI) | payer OTHER | END 2022-11-21 09:51 | disposition home or self-care (01) | LOC: CSHWCC 09:50 | PROVIDERS: ATTEND Nurse Practitioner Family | DX: R60.0 Localized edema (principal) | CPT/HCPCS: 99213; G0463 ==

== ENCOUNTER 2022-11-23 10:07 | Emergency (ER) | payer OTHER ==
[2022-11-23 11:14] LABS: #Basophils 0.1 10x3/uL (0.0-0.2); #Eosinphils 0.4 10x3/uL (0.0-0.5); #Monocytes 0.5 10x3/uL (0.0-1.1); #Neutrophils 7.3 10x3/uL (1.5-8.4); %Basophils 0.8 % (0.0-2.0); %Eosinophils 3.7 % (0.0-6.0); %Lymphocytes 18.7 % (18.0-47.0); %Monocytes 5.2 % (0.0-10.0); %Neutrophils 70.2 % (40.0-75.0); Hemoglobin 15.1 g/dL (13.5-17.5); Mean Corpuscular Hemoglobin 25.4 pg (27.0-33.0); Mean Corpuscular Volume 79.3 fl (81.2-95.1); Mean Platelet Volume 10.6 fl (7.4-10.4); Platelet Count 228 10x3/uL (150-450); Red Blood Cell (RBC) Count 5.95 10x6/uL (4.32-5.72); White Blood Cell (WBC) Count 10.3 10x3/uL (3.5-10.5)
[2022-11-23 11:37] LABS: ALT (SGPT) 17 U/L (8-55); AST (SGOT) 17 U/L (5-34); Albumin 3.6 g/dL (3.5-5.0); Alkaline Phosphatase 68 U/L (40-110); Anion Gap 16 mmol/L (10-20); BUN (Urea Nitrogen) 26 mg/dL (8.4-25.7); Bilirubin, Total 0.7 mg/dL (0.2-1.2); Calc. Creatinine Clearance 0 mL/min (70-130); Calcium 8.7 mg/dL (7.8-10.44); Carbon Dioxide 21 mmol/L (22-29); Chloride 108 mmol/L (98-107); Estimated GFR 67; Globulin 2.4 g/dL (2.4-3.5); Glucose 191 mg/dL (70-105); Sodium 140 mmol/L (136-145)
== END 2022-11-23 12:53 | disposition home or self-care (01) ==
LOC: CSHERS 10:07
DX: R07.9 Chest pain, unspecified (principal); I11.0 Hypertensive heart disease with heart failure; I50.9 Heart failure, unspecified; E11.9 Type 2 diabetes mellitus without complications; Z79.4 Long term (current) use of insulin; Z79.84 Long term (current) use of oral hypoglycemic drugs; Z79.899 Other long term (current) drug therapy; Z79.82 Long term (current) use of aspirin
CPT/HCPCS: 71045; 80053; 83880; 84484; 85025; 93005

== ENCOUNTER 2022-12-26 10:33 | Outpatient (CLI) | payer OTHER | END 2022-12-26 10:34 | disposition home or self-care (01) | LOC: CSHRAD 10:33 | PROVIDERS: ATTEND Student in an Organized Health Care Education/Training Program | DX: I50.9 Heart failure, unspecified (principal) | CPT/HCPCS: 71046 ==

== ENCOUNTER 2023-03-02 08:05 | Outpatient (CLI) | payer OTHER | END 2023-03-02 08:06 | disposition home or self-care (01) | LOC: CSHWCC 08:05 | PROVIDERS: ATTEND Nurse Practitioner Family | DX: L98.491 Non-pressure chronic ulcer of skin of other sites limited to breakdown of skin (principal); T81.89XD Other complications of procedures, not elsewhere classified, subsequent encounter | CPT/HCPCS: 88305 ==

== ENCOUNTER 2023-03-19 09:44 | Outpatient (CLI) | payer OTHER | END 2023-03-19 09:45 | disposition home or self-care (01) | LOC: CSHWCC 09:44 | PROVIDERS: ATTEND Nurse Practitioner Family | DX: S81.802D Unspecified open wound, left lower leg, subsequent encounter (principal); L89.892 Pressure ulcer of other site, stage 2; R60.0 Localized edema | CPT/HCPCS: 99213; G0463 ==

== ENCOUNTER 2023-06-08 09:13 | Outpatient (CLI) | payer OTHER ==
[2023-06-08 09:48] LABS: Base Excess (BEa) -1.8 mEq/L (-2.0 to +3.0); CO2 Tension 34.9 mmHg (35.0-45.0); Calcium, Ionized (arterial) 1.19 mmol/L (1.12-1.30); Carboxyhemoglobin (COHb) 0.7 gm% (0.0-3.0); Hematocrit-ABG 46 % (42.0-52.0); Hemoglobin (Hb) 15.6 g/dL (14.0-18.0); O2 Tension (PaO2), arterial 80.5 mmHg (80.0-100.0); Potassium - ABG Lab 4.62 mmol/L (3.70-5.30); Puncture Site LRA; pH, Arterial 7.417 (7.35-7.45)
[2023-06-08 09:51] LABS: ALV-art Gradient 25.605 mmHg (0-20)
== END 2023-06-08 09:14 | disposition home or self-care (01) ==
LOC: CSHCP 09:13
PROVIDERS: ATTEND Internal Medicine
DX: G47.33 Obstructive sleep apnea (adult) (pediatric) (principal)
CPT/HCPCS: 36600; 82805

== ENCOUNTER 2023-06-11 08:55 | Outpatient (CLI) | payer OTHER | END 2023-06-11 08:56 | disposition home or self-care (01) | LOC: CSHWCC 08:55 | PROVIDERS: ATTEND Nurse Practitioner Family | DX: S81.802D Unspecified open wound, left lower leg, subsequent encounter (principal) ==

== ENCOUNTER 2024-02-05 08:14 | Outpatient (CLI) | payer OTHER ==
[2024-02-05 09:11] LABS: Actual Bicarbonate (HCO3a) 27.5 mEq/L (22-28); Analyzer IN Cardio CS ER; Base Excess (BEa) 3.3 mEq/L (-2.0 to +3.0); CO2 Tension 40.4 mmHg (35.0-45.0); Calcium, Ionized (arterial) 1.16 mmol/L (1.12-1.30); Carboxyhemoglobin (COHb) 0.8 gm% (0.0-3.0); Hematocrit-ABG 52 % (42.0-52.0); Hemoglobin (Hb) 17.7 g/dL (14.0-18.0); Potassium - ABG Lab 3.71 mmol/L (3.70-5.30); Puncture Site LRA; pH, Arterial 7.451 (7.35-7.45)
== END 2024-02-05 08:15 | disposition home or self-care (01) ==
LOC: CSHLAB 08:14
PROVIDERS: ATTEND Internal Medicine
DX: G47.33 Obstructive sleep apnea (adult) (pediatric) (principal)
CPT/HCPCS: 36600; 82805